=== PATIENT | male | born 1955 | race Caucasian/White ===

== ENCOUNTER → 2016-08-25 | Outpatient (CLI) | payer OTHER ==
[~2016-08-25] MED LIST: ACET1TAB84 PO; CALC500C70 PO; FLV1 PO; FURO-85 PO; HYDR-5688 PO; LBR25 PO; LISI-729 PO; MAGN400T6 PO; PROP20TA67 PO; THM100 PO; VST25HP PO
[2016-08-25 14:42] LABS: BASO % 0.3 %; BASO ABS # 0.03 K/uL (0-0.2); COMPLETE YES; EOS % 0.1 %; IG% 0.3 %; LYMPH % 8.3 %; LYMPH ABS # 0.86 K/uL (1.2-3.4); MEAN CELL VOLUME 99.7 fL (80-100); MEAN CORPUSCULAR HEMOGLOBIN 34.6 pg (25-34); MEAN CORPUSCULAR HGB CONC 34.7 g/dl (32-36); MONO % 11.2 %; NEUT % 79.8 %; PLATELET COUNT 110 K/uL (130-400); RED BLOOD COUNT 3.21 M/uL (4.7-6.1)
[2016-08-25 14:55] LABS: INR 1.5 (0.9-1.1); PROTHROMBIN TIME (PATIENT) 16.8 SECONDS (9.0-12.0)
[2016-08-25 15:15] LABS: AST/SGOT 118 U/L (15-37); BLOOD UREA NITROGEN 39 mg/dl (7-18); BUN/CREATININE RATIO 22.7 (10-20); CALCIUM 8.7 mg/dl (8.5-10.1); CARBON DIOXIDE 24 mmol/L (21-32); CHLORIDE 102 mmol/L (98-107); GLUCOSE 151 mg/dl (70-99); POTASSIUM 4.9 mmol/L (3.5-5.1); SODIUM 139 mmol/L (136-145)
[2016-08-25 15:18] LABS: ALB/GLOB RATIO 0.7 (0.9-2); ALKALINE PHOSPHATASE 114 U/L (45-117); ALT/SGPT 54 U/L (12-78)
== END | disposition home or self-care (01) ==
LOC: C.LAB 12:35
PROVIDERS: ATTEND Family Medicine
DX: K92.2 Gastrointestinal hemorrhage, unspecified (principal)

== ENCOUNTER 2016-08-29 13:07 | Observation (INO) | payer OTHER ==
[~2016-08-29] VITALS: Ht 177.8 cm; Wt 107.0 kg
[~2016-08-29 13:07] MED LIST changes: -ACET1TAB84 PO; -CALC500C70 PO; -FLV1 PO; -HYDR-5688 PO; -LBR25 PO; -MAGN400T6 PO; -PROP20TA67 PO; -THM100 PO
[2016-08-29 14:00] VITALS: BP 129/69; PULSE 69; TEMP 37.7; Ht 177.8 cm; Wt 107.0 kg
[2016-08-29] MEDS ORDERED: ALUMINUM/MAGNESIUM/SIMETH (MAALOX MAX) 30 ML UDC PO PRN (14:30)
[2016-08-29] MEDS ORDERED: POLYETHYLENE (MIRALAX) 17 GM PACK PO PRN (14:30)
[2016-08-29] MEDS ORDERED: ONDANSETRON INJ 2 MG/ML 2 ML VIAL IV PRN (14:30)
[2016-08-29] MEDS ORDERED: hydrOXYzine HCL 25 MG TAB PO PRN (14:30)
[2016-08-29] MEDS ORDERED: ACETAMINOPHEN 325 MG TAB PO PRN (14:30)
[2016-08-29] MEDS ORDERED: MAGNESIUM HYDROXIDE SUSP 30 ML UDC PO PRN (14:30)
[2016-08-29] MEDS ORDERED: IV FLUIDS COMPLETED PRN (14:45)
--- NOTE | 2016-08-29 14:50 | Medical Student: [facility] ---
Med Student History & Physical Date & Time of Service: Aug 29, 2016 at 14:44 Chief Complaint: Alcohol Withdrawl; Esophageal Varices Primary Care Physician: Javad Haskins M.D. History of Present Illness Source: patient 61y/o male with a history heavy alcohol use over the past year had an endoscopy performed today at [facility] and was found to have esophageal varices. He is scheduled to have esophageal banding this upcoming Thursday for the varices and has been admitted for alcoholic detox. The patient's last drink was six days ago. Prior to his last drink, the patient had a one year period where he would drink three shots of whiskey and four beers a day. Six days ago, the day of his last drink, the patient had three episodes of vomiting a brownish-red substance. He had three more episodes of vomiting five days ago and two episodes four days ago. He has had no episodes of vomiting in recent days. However, he has had multiple instances of black stool over the past week. He saw his PCP, Dr. Haskins, this week, and was scheduled for an endoscopy, which was performed today. In terms of current symptoms, the patient states that he has been feeling shaky beginning yesterday. He also has felt some chills and currently feels dizzy. He denies nausea, abdominal pain, diarrhea, constipation, SIMONS, blurred vision, CP, SOB, palpitations, and fevers. Past Medical/Surgical History Medical Problems: (1) Alcoholic cirrhosis of liver 2. HTN 3. Esophageal Varices 4. Lower leg swelling Surgical History 1. Shoulder surgery 2. Tonsillectomy Family History Father: COPD Sibling(s): heart disease Social History Smoking Status: Former Smoker (quit one year ago) Alcohol Use: heavy Marital Status: single Housing status: lives alone Occupational Status: employed Immunizations History of Influenza Vaccine: Yes Influenza Vaccine Date: May 15, 2010 History of Tetanus Vaccine?: Unknown History of Pneumococcal: Yes Pneumococcal Date: May 15, 2010 History of Hepatitis B Vaccine: Unknown Allergies Coded Allergies: No Known Allergies (Unverified , 04/30/16) Medications Furosemide (Lasix), 20 MG PO DAILY Hydroxyzine HCl (Hydroxyzine Pamoate), 1 TAB PO QID PRN for Anxiety Lisinopril (Zestril), 5 MG PO DAILY Review of Systems Constitutional: + chills, No fever, No sweats, No weakness, No weight loss Eyes: No discharge, No redness, No worsening of vision ENT: + sore throat, No hearing loss, No trouble swallowing Respiratory: No cough, No dyspnea on exertion, No shortness of breath, No sputum, No wheezing Cardiovascular: No chest pain, No edema, No palpitations Abdomen: No constipation, No diarrhea, No nausea, No pain, No vomiting Musculoskeletal: No joint pain, No muscle pain, No swelling Neurologic: No memory loss, No numbness/tingling, No paralysis, No weakness Psychiatric: No anxiety, No depression symptoms Integumentary: No itch, No new/changing skin lesions, No rash Physical Exam General Appearance: WD/WN, no apparent distress, + pertinent finding (minimal hand tremor noted) Head: normocephalic, atraumatic Eyes: normal inspection, EOMI ENT: hearing grossly normal, pharynx normal Respiratory/Chest: chest non-tender, no respiratory distress, no accessory muscle use, + crackles (crackles right base) Cardiovascular: regular rate, rhythm, no edema, no gallop, no murmur Abdomen/GI: normal bowel sounds, non tender, + distended Back: normal inspection, no CVA tenderness Extremities/Musculoskelatal: normal inspection, no calf tenderness, no pedal edema Neurologic/Psych: alert, normal mood/affect, oriented x 3 Skin: normal color, warm/dry, no rash Diagnostics Laboratory Results Last 24 Hours Test 08/29/16 15:25 White Blood Count 5.79 K/uL Red Blood Count 2.87 M/uL Hemoglobin 10.1 g/dL Hematocrit 29.3 % Mean Corpuscular Volume 102.1 fL Mean Corpuscular Hemoglobin 35.2 pg Mean Corpuscular Hemoglobin Concent 34.5 g/dl Platelet Count 112 K/uL Mean Platelet Volume 9.8 fL Neutrophils (%) (Auto) 63.8 % Lymphocytes (%) (Auto) 20.2 % Monocytes (%) (Auto) 13.8 % Eosinophils (%) (Auto) 1.0 % Basophils (%) (Auto) 0.9 % Neutrophils # (Auto) 3.69 K/uL Lymphocytes # (Auto) 1.17 K/uL Monocytes # (Auto) 0.80 K/uL Eosinophils # (Auto) 0.06 K/uL Basophils # (Auto) 0.05 K/uL RDW Standard Deviation 52.7 fL RDW Coefficient of Variation 14.1 % Immature Granulocyte % (Auto) 0.3 % Immature Granulocyte # (Auto) 0.02 K/uL Prothrombin Time 16.0 SECONDS Prothromb Time International Ratio 1.5 Results Past 24 Hours Test 08/29/16 14:22 Range/Units Impression Assessment and Plan 61y/o male with a history of alcohol abuse and esophageal varices diagnosed today via endoscopy, admitted for alcohol detox, last drink 6 days ago. The patient currently is having minimal symptoms of alcohol withdrawal at this point , with minimal tremor and some chills. Will continue to monitor the patient overnight, making sure that the patient remains stable. In terms of the esophageal varices, the patient has not had any recent vomiting and his stool has been black but not bright red. Additionally, given that blood can be a laxative, the patient has not been having diarrhea and has not had a bowel movement in the past few days. He currently is not tachycardic. At the moment, the patient is stable but will continue to monitor. Alcohol Withdrawal/Detox- Administer Thiamine 100mg PO QAM, Folic acid 1mg PO QAM. Administer Lorazepam 2mg IV as needed for withdrawal symptoms. Ondansetron as needed for nausea. Liver profile, CBC, BMP, coagulation, and magnesium have been ordered. Monitor electrolytes. Esophageal Varices- Patient currently stable. To lower the risk of ruptured varices, will consider the administration of Propranolol or Isosorbide dinitrate , or potentially both medications. Continue to monitor the patient's vital signs , especially pulse and BP. Monitor blood count. HTN- Continue to administer Lisinopril 5mg PO daily. Lower extremity edema- The patient's creatinine was elevated on lab test in . However, creatinine today was at 1.1. Administer Lasix 20mg PO daily. Level of Care Med/Surg DVT Prophylaxis other (Given patient's history of varices, will not anticoagulate)
[2016-08-29] MEDS ORDERED: THIAMINE HCL 100 MG/ML 2 ML VIAL IV STA (15:04)
[2016-08-29] MEDS ORDERED: FoLIC ACID INJ 1 MG in SYRINGE 9.8 ML IV ONE (15:30)
[2016-08-29] MEDS ORDERED: THIAMINE HCL INJ 100 MG in SYRINGE 9 ML IV ONE (15:30)
[2016-08-29 15:34] LABS: BASO % 0.9 %; BASO ABS # 0.05 K/uL (0-0.2); COMPLETE YES; HEMATOCRIT 29.3 % (42-52); IG% 0.3 %; LYMPH % 20.2 %; LYMPH ABS # 1.17 K/uL (1.2-3.4); MEAN CELL VOLUME 102.1 fL (80-100); MEAN CORPUSCULAR HEMOGLOBIN 35.2 pg (25-34); MEAN CORPUSCULAR HGB CONC 34.5 g/dl (32-36); MEAN PLATELET VOLUME 9.8 fL (7.4-10.4); MONO % 13.8 %; NEUT % 63.8 %; PLATELET COUNT 112 K/uL (130-400); RED BLOOD COUNT 2.87 M/uL (4.7-6.1); WHITE BLOOD COUNT 5.79 K/uL (4.8-10.8)
[2016-08-29 15:44] LABS: INR 1.5 (0.9-1.1)
--- NOTE | 2016-08-29 15:51 | History and Physical ---
History & Physical Date & Time of Service: Aug 29, 2016 at 15:51 Chief Complaint: Alcohol Withdrawl; Esophageal Varices Primary Care Physician: Javad Haskins M.D. Past Medical/Surgical History Medical Problems: (1) Alcohol abuse Status: Chronic (2) Hypertension Status: Chronic Family History Diabetes mellitus Heart disease Lung disease Social History Smoking Status: Former Smoker (quit one year ago) Alcohol Use: heavy Marital Status: single Housing status: lives alone Occupational Status: employed Immunizations History of Influenza Vaccine: Yes Influenza Vaccine Date: May 15, 2010 History of Tetanus Vaccine?: Unknown History of Pneumococcal: Yes Pneumococcal Date: May 15, 2010 History of Hepatitis B Vaccine: Unknown Allergies Coded Allergies: No Known Allergies (Unverified , 04/30/16) Home Medications Scheduled Furosemide (Lasix), 20 MG PO DAILY Lisinopril (Zestril), 5 MG PO DAILY Scheduled PRN Hydroxyzine HCl (Hydroxyzine Pamoate), 1 TAB PO QID PRN for Anxiety Diagnostics Laboratory Results Results Past 24 Hours Test 08/29/16 15:25 Range/Units White Blood Count 5.79 4.8-10.8 K/uL Red Blood Count 2.87 4.7-6.1 M/uL Hemoglobin 10.1 14.0-18.0 g/dL Hematocrit 29.3 42-52 % Mean Corpuscular Volume 102.1 80-100 fL Mean Corpuscular Hemoglobin 35.2 25-34 pg Mean Corpuscular Hemoglobin Concent 34.5 32-36 g/dl Platelet Count 112 130-400 K/uL Mean Platelet Volume 9.8 7.4-10.4 fL Neutrophils (%) (Auto) 63.8 % Lymphocytes (%) (Auto) 20.2 % Monocytes (%) (Auto) 13.8 % Eosinophils (%) (Auto) 1.0 % Basophils (%) (Auto) 0.9 % Neutrophils # (Auto) 3.69 1.4-6.5 K/uL Lymphocytes # (Auto) 1.17 1.2-3.4 K/uL Monocytes # (Auto) 0.80 0.11-0.59 K/uL Eosinophils # (Auto) 0.06 0-0.5 K/uL Basophils # (Auto) 0.05 0-0.2 K/uL RDW Standard Deviation 52.7 36.4-46.3 fL RDW Coefficient of Variation 14.1 11.5-14.5 % Immature Granulocyte % (Auto) 0.3 % Immature Granulocyte # (Auto) 0.02 0.00-0.02 K/uL Prothrombin Time 16.0 9.0-12.0 SECONDS Prothromb Time International Ratio 1.5 0.9-1.1 Impression VTE Prophylaxis VTE Risk Assessment Done? Y/N: Yes Risk Level: Moderate Given or contraindicated: Contraindicated
[2016-08-29 16:07] LABS: ALT/SGPT 173 U/L (12-78); AST/SGOT 344 U/L (15-37); BLOOD UREA NITROGEN 16 mg/dl (7-18); BUN/CREATININE RATIO 14.4 (10-20); CALCIUM 8.2 mg/dl (8.5-10.1); CARBON DIOXIDE 25 mmol/L (21-32); CHLORIDE 103 mmol/L (98-107); GLUCOSE 106 mg/dl (70-99); SODIUM 137 mmol/L (136-145)
[2016-08-29 16:10] LABS: ALB/GLOB RATIO 0.7 (0.9-2); ALKALINE PHOSPHATASE 115 U/L (45-117)
[2016-08-29] MEDS ORDERED: INFLUENZA VIRUS QUAD VACCINE 0.5 ML SYR IM. ONE (16:30)
[2016-08-29] MEDS ORDERED: INFLUENZA ADMINISTRATION CHARGE ONE (16:30)
[2016-08-29] MEDS ORDERED: PHYTONADIONE 5 MG TAB PO STA (17:01)
--- NOTE | 2016-08-29 17:01 | History and Physical ---
History & Physical Date & Time of Service: Aug 29, 2016 at 17:00 Chief Complaint: Alcohol Withdrawl; Esophageal Varices Primary Care Physician: Javad Haskins M.D. Past Medical/Surgical History Medical Problems: (1) Alcohol abuse Status: Chronic (2) Hypertension Status: Chronic Family History Diabetes mellitus Heart disease Lung disease Social History Smoking Status: Former Smoker (quit one year ago) Alcohol Use: heavy Marital Status: single Housing status: lives alone Occupational Status: employed Immunizations History of Influenza Vaccine: Yes Influenza Vaccine Date: May 15, 2010 History of Tetanus Vaccine?: Unknown History of Pneumococcal: Yes Pneumococcal Date: May 15, 2010 History of Hepatitis B Vaccine: Unknown Allergies Coded Allergies: No Known Allergies (Unverified , 04/30/16) Home Medications Scheduled Furosemide (Lasix), 20 MG PO DAILY Lisinopril (Zestril), 5 MG PO DAILY Scheduled PRN Hydroxyzine HCl (Hydroxyzine Pamoate), 1 TAB PO QID PRN for Anxiety Physical Exam Vital Signs Date Time Temp Pulse Resp B/P Pulse Ox O2 Delivery O2 Flow Rate FiO2 08/29/16 14:00 37.7 69 18 129/69 Room Air Diagnostics Laboratory Results Results Past 24 Hours Test 08/29/16 15:25 Range/Units White Blood Count 5.79 4.8-10.8 K/uL Red Blood Count 2.87 4.7-6.1 M/uL Hemoglobin 10.1 14.0-18.0 g/dL Hematocrit 29.3 42-52 % Mean Corpuscular Volume 102.1 80-100 fL Mean Corpuscular Hemoglobin 35.2 25-34 pg Mean Corpuscular Hemoglobin Concent 34.5 32-36 g/dl Platelet Count 112 130-400 K/uL Mean Platelet Volume 9.8 7.4-10.4 fL Neutrophils (%) (Auto) 63.8 % Lymphocytes (%) (Auto) 20.2 % Monocytes (%) (Auto) 13.8 % Eosinophils (%) (Auto) 1.0 % Basophils (%) (Auto) 0.9 % Neutrophils # (Auto) 3.69 1.4-6.5 K/uL Lymphocytes # (Auto) 1.17 1.2-3.4 K/uL Monocytes # (Auto) 0.80 0.11-0.59 K/uL Eosinophils # (Auto) 0.06 0-0.5 K/uL Basophils # (Auto) 0.05 0-0.2 K/uL RDW Standard Deviation 52.7 36.4-46.3 fL RDW Coefficient of Variation 14.1 11.5-14.5 % Immature Granulocyte % (Auto) 0.3 % Immature Granulocyte # (Auto) 0.02 0.00-0.02 K/uL Prothrombin Time 16.0 9.0-12.0 SECONDS Prothromb Time International Ratio 1.5 0.9-1.1 Sodium Level 137 136-145 mmol/L Potassium Level 4.0 3.5-5.1 mmol/L Chloride Level 103 98-107 mmol/L Carbon Dioxide Level 25 21-32 mmol/L Anion Gap 9.0 3-11 mmol/L Blood Urea Nitrogen 16 7-18 mg/dl Creatinine 1.10 0.60-1.40 mg/dl Estimated GFR () 83.5 Estimated GFR (Non- 72.1 BUN/Creatinine Ratio 14.4 10-20 Random Glucose 106 70-99 mg/dl Calcium Level 8.2 8.5-10.1 mg/dl Magnesium Level 2.0 1.8-2.4 mg/dl Total Bilirubin 2.2 0.2-1 mg/dl Aspartate Amino Transf (AST/SGOT) 344 15-37 U/L Alanine Aminotransferase (ALT/SGPT) 173 12-78 U/L Alkaline Phosphatase 115 45-117 U/L Total Protein 6.6 6.4-8.2 gm/dl Albumin 2.8 3.4-5.0 gm/dl Globulin 3.8 2.5-4.0 gm/dl Albumin/Globulin Ratio 0.7 0.9-2 Impression Assessment and Plan #[id number] Advanced Directives Existing Living Will: No Existing Power of Photo Manager: No VTE Prophylaxis VTE Risk Assessment Done? Y/N: Yes Risk Level: Moderate Given or contraindicated: Contraindicated
--- NOTE | 2016-08-29 17:37 | HISTORY & PHYSICAL EXAMINATION ---
DATE OF ADMISSION: 08/29/2016 ADMISSION HISTORY AND PHYSICAL CHIEF COMPLAINT: Alcohol withdrawal. HISTORY OF PRESENT ILLNESS: The patient is a very pleasant 61-year-old male who last quit drinking on Thursday. He has had heavy alcohol use for quite a while, especially over the last year, even more than his baseline and he had some bloody vomitus earlier this week, his last he relates to me being Thursday as well as some melena in his stools but no diarrhea and actually right now he is kind of constipated. No bloody stools. No significant abdominal pain. He had an endoscopy performed today and was found to have esophageal varices. He is to have banding this Thursday, but was showing some signs of withdrawal, so we were asked to admit him to manage his alcohol withdrawal. Again, he notes his last drink was about 5 going on 6 days ago. He is somewhat shaky and maybe a little bit of diminished appetite but no other complaints, no hematemesis, no hematochezia. He does have melena, but no diarrhea, not frequent stools; he is actually constipated. REVIEW OF SYSTEMS: Otherwise negative, except for as above. PAST MEDICAL HISTORY: Includes cirrhosis from alcohol; esophageal varices; lower extremity, uncertain etiology; hypertension. MEDICATIONS: Lasix 20 mg daily, Atarax q.i.d. p.r.n. anxiety and lisinopril 5 mg daily. SOCIAL HISTORY: Quit smoking about a year ago. He does drink heavily, probably at least 6-8 drinks a day, it sounds like based on his history. He is single and he lives alone. ALLERGIES: No known drug allergies. FAMILY HISTORY: His dad had COPD, had a sibling with heart disease. PHYSICAL EXAMINATION: VITAL SIGNS: Temperature 37.7, pulse 69, respiratory rate 18, blood pressure 129/69. GENERAL: He is awake, alert, oriented x3, pleasant, in no acute distress. HEENT: Normocephalic, atraumatic. Mucous membranes are moist. CARDIOVASCULAR: Regular without rubs, murmurs, or gallops. He is not tachycardic. LUNGS: Clear to auscultation bilaterally. No rales, rhonchi, or wheezes with good effort. ABDOMEN: Soft, moderately distended, no fluid wave. No guarding, no rebound, no rigidity. I cannot really assess organomegaly due to the distention. He has no tenderness. EXTREMITIES: Show no cyanosis, clubbing or edema. No calf tenderness. SKIN: Shows no rashes, no pallor or icterus. He maybe has the smallest amount of scleral icterus, but definitely nothing in the skin. NEUROLOGIC: Shows cranial nerves II-XII to be grossly intact. Gross motor and sensory are intact. He is mildly tremulous. MENTAL STATE: Shows good recent and remote recall. Normal mood and affect. Good judgment and insight. MUSCULOSKELETAL: Yields no gross lesions. LABORATORIES AND DIAGNOSTICS: CBC shows a white count of 5.79, hemoglobin 10.1 with an MCV of 102.1, platelets 112. Complete metabolic panel with sodium 137, potassium 4, chloride 103, CO2 25, BUN 16, creatinine 1.1. Calcium 8.2, glucose 106, mag 2, total bilirubin 2.2 with an AST of 344, ALT 173, alkaline phosphatase 115, total bili 6.6 with an albumin of 2.8. PT of 16 with an INR of 1.5. Hep C screen is pending. ASSESSMENT AND PLAN: 1. Alcohol withdrawal. Fortunately, his withdrawal appears fairly mild. He is working on day #5 going into day #6 since his last drink. He does not know what his previous alcohol withdrawal would look like because he has really never quit. He does drink fairly heavily for a long period of time, certainly he would be fairly high risk and it is very reasonable to follow him overnight. We will utilize the alcohol withdrawal protocol for benzodiazepines, based on his withdrawal symptoms I fortunately expect this to be fairly mild. 2. Alcohol abuse. His fallout from this appears to be cirrhosis, although fortunately he actually shows a degree of what appears to be an alcoholic hepatitis, so at least he is able to mount a hepatocellular response, which is fairly reassuring in an odd way. Will add thiamine and folate. 3. Cirrhosis. He does have an elevated bilirubin but it is actually lower than it was earlier in the week. He has an elevated INR, but we will give him vitamin K to see if it corrects and again as above noted, he is showing an alcoholic hepatitis, which at least in an odd way is reassuring for not necessarily being at end-stage liver disease. 4. Esophageal varices. He is not showing any signs or symptoms of bleeding. His hemoglobin is stable from what it was earlier this week. We will continue to follow, likely given his blood pressure and heart rate will discontinue his lisinopril and Lasix in favor of long-acting nitrates and if his heart rate allows certainly would also like to add a nonselective beta juan jose, but I am not sure if this will be workable given his heart rates in the 60s and will check with GI to see if they felt he was high enough risk to need to keep in the hospital through Thursday for banding or if mostly we were going to simply manage the withdrawal and then he can have a banding done as an outpatient. 5. Thrombocytopenia related to alcohol abuse. 6. Anemia related to upper gastrointestinal bleeding from before. 7. Macrocytosis. We will check B12. 8. Peripheral edema. He does not appear to have ascites. He does not appear to have congestive heart failure. Will discontinue his Lasix. Of note, his creatinine was 1.7 earlier in the week, it is now down to 1.1 and I suspect the acute renal failure was related to blood loss and/or diuretics. 9. Hypocalcemia. Check a vitamin D. 10. Hypertension as above. 11. Deep venous thrombosis prophylaxis. Pharmacologic prophylaxis is obviously contraindicated with his recently bleeding varices. Mechanical prophylaxis would be of dubious benefit and possible harm in terms of skin breakdown and falls, so we will encourage ambulation as possible. ANTONIO
[2016-08-30 07:35] VITALS: BP 132/72; PULSE 76; TEMP 37.1; O2SAT 96
[2016-08-30 07:40] VITALS: O2SAT 96
[2016-08-30] MEDS ORDERED: LORAZEPAM INJ 0.5 MG in SYRINGE 0.75 ML IV PRN (07:45)
[2016-08-30] MEDS ORDERED: CHLORDIAZEPOXIDE 25 MG CAP PO SCH (08:00)
[2016-08-30 08:25] LABS: INR 1.4 (0.9-1.1); PROTHROMBIN TIME (PATIENT) 15.3 SECONDS (9.0-12.0)
[2016-08-30] MEDS ORDERED: FLV1 PO (08:48)
[2016-08-30] MEDS ORDERED: THM100 PO (08:48)
[2016-08-30] MEDS ORDERED: LBR25 PO (08:48)
--- NOTE | 2016-08-30 08:50 | Discharge Instructions ---
Discharge Instructions Admission Reason for Admission: Alcohol Withdrawl; Esophageal Varices Discharge Discharge Diagnosis / Problem: alcohol withdrawal Discharge Goals Goal(s): Increase independence, Improve disease control, Diagnostic testing, Therapeutic intervention Activity Recommendations Activity Limitations: per Instructions/Follow-up section . Instructions / Follow-Up Instructions / Follow-Up follow up Gastroenterology on thursday for variceal banding procedure Current Hospital Diet Patient's current hospital diet: Regular Diet Discharge Diet Recommended Diet: Regular Diet Pending Studies Studies pending at discharge: no Laboratory Results Last 24 Hours Test 08/29/16 15:25 08/30/16 08:00 White Blood Count 5.79 K/uL Red Blood Count 2.87 M/uL Hemoglobin 10.1 g/dL Hematocrit 29.3 % Mean Corpuscular Volume 102.1 fL Mean Corpuscular Hemoglobin 35.2 pg Mean Corpuscular Hemoglobin Concent 34.5 g/dl Platelet Count 112 K/uL Mean Platelet Volume 9.8 fL Neutrophils (%) (Auto) 63.8 % Lymphocytes (%) (Auto) 20.2 % Monocytes (%) (Auto) 13.8 % Eosinophils (%) (Auto) 1.0 % Basophils (%) (Auto) 0.9 % Neutrophils # (Auto) 3.69 K/uL Lymphocytes # (Auto) 1.17 K/uL Monocytes # (Auto) 0.80 K/uL Eosinophils # (Auto) 0.06 K/uL Basophils # (Auto) 0.05 K/uL RDW Standard Deviation 52.7 fL RDW Coefficient of Variation 14.1 % Immature Granulocyte % (Auto) 0.3 % Immature Granulocyte # (Auto) 0.02 K/uL Prothrombin Time 16.0 SECONDS 15.3 SECONDS Prothromb Time International Ratio 1.5 1.4 Sodium Level 137 mmol/L Potassium Level 4.0 mmol/L Chloride Level 103 mmol/L Carbon Dioxide Level 25 mmol/L Anion Gap 9.0 mmol/L Blood Urea Nitrogen 16 mg/dl Creatinine 1.10 mg/dl Estimated GFR () 83.5 Estimated GFR (Non- 72.1 BUN/Creatinine Ratio 14.4 Random Glucose 106 mg/dl Calcium Level 8.2 mg/dl Magnesium Level 2.0 mg/dl Total Bilirubin 2.2 mg/dl Aspartate Amino Transf (AST/SGOT) 344 U/L Alanine Aminotransferase (ALT/SGPT) 173 U/L Alkaline Phosphatase 115 U/L Total Protein 6.6 gm/dl Albumin 2.8 gm/dl Globulin 3.8 gm/dl Albumin/Globulin Ratio 0.7 Hepatitis C Antibody Screen NEG Medical Emergencies . Who to Call and When: Medical Emergencies: If at any time you feel your situation is an emergency, please call 911 immediately. . Non-Emergent Contact Non-Emergency issues call your: Primary Care Provider Call Non-Emergent contact if: you have any medication questions . Past History Medical & Surgical History: (1) Alcohol withdrawal . "Provider Documentation" section prepared by Benjie Michel. VTE Core Measure Inpt VTE Proph given/why not?: Contraindicated
[2016-08-30] MEDS ORDERED: THIAMINE HCL 100 MG TAB PO SCH (09:00)
[2016-08-30] MEDS ORDERED: LISINOPRIL 5 MG TAB PO SCH (09:00)
[2016-08-30] MEDS ORDERED: FUROSEMIDE 20 MG TAB PO SCH (09:00)
--- NOTE | 2016-08-30 09:05 | Discharge Summary ---
Discharge Summary Date of Service Aug 30, 2016. Discharge Summary Admission Date: Aug 29, 2016 at 13:30 Discharge Date: Aug 30, 2016 Discharge Disposition: Home Principal Diagnosis: alcohol withdrawal Immunizations: Have You Had Influenza Vaccine: Yes Influenza Vaccine Date: May 15, 2010 History of Tetanus Vaccine?: Unknown History of Pneumococcal: Yes Pneumococcal Date: May 15, 2010 History of Hepatitis B Vaccine: Unknown Medication Reconciliation New Medications: Chlordiazepoxide (Chlordiazepoxide HCl) 25 Mg Cap 25 MG PO Q8H PRN for Anxiety/Agitation MDD 75, #20 CAP Folic Acid (Folic Acid) 1 Mg Tab 1 MG PO QAM, #90 TAB Thiamine HCl (Vitamin B-1) 100 Mg Tab 100 MG PO QAM, #90 TAB Continued Medications: Furosemide (Lasix) 20 Mg Tab 20 MG PO DAILY, TAB Hydroxyzine HCl (Hydroxyzine Pamoate) 25 Mg Tab 1 TAB PO QID PRN for Anxiety Lisinopril (Zestril) 5 Mg Tab 5 MG PO DAILY, TAB Referrals At Discharge Follow up Referrals: [facility] Referral - Within 1 Week with Randy Live M.D. Physician Referral - Within 2 Weeks with Javad Haskins M.D. Discharge Exam Review of Systems: Constitutional: No chills ENT: No unusual epistaxis Respiratory: No sputum Cardiovascular: No PND Musculoskeletal: No joint pain Genitourinary - Male: No hematuria Hematologic / Lymphatic: No abnormal bleeding/bruising Physical Exam: General Appearance: WD/WN, no apparent distress Eyes: normal inspection, EOMI ENT: hearing grossly normal, pharynx normal Neck: supple Respiratory/Chest: chest non-tender, no accessory muscle use Cardiovascular: no gallop, no murmur Abdomen / GI: soft, no pulsatile mass Extremities: normal inspection, normal capillary refill Neurologic/Psychiatric: alert, normal reflexes Skin: warm/dry, no rash Hospital Course A 61 yo male comes with 1. Alcohol withdrawal. Fortunately, his withdrawal appears fairly mild. his symptoms improved, start librium prn, folic acid and thiamine supplements 2. Alcohol abuse. His fallout from this appears to be cirrhosis, although fortunately he actually shows a degree of what appears to be an alcoholic hepatitis, so at least he is able to mount a hepatocellular response 3. Cirrhosis. He does have an elevated bilirubin but it is actually lower than it was earlier in the week. He has an elevated INR, due to alcoholic hepatitis received vitamin K 4. Esophageal varices. He is not showing any signs or symptoms of bleeding. His hemoglobin is stable from what it was earlier this week. will follow GI on thursday for esophageal varices banding 5. Thrombocytopenia related to alcohol abuse. 6. Anemia related to upper gastrointestinal bleeding from before. 7. Macrocytosis. We will check B12. 8. Peripheral edema. He does not appear to have ascites. 9. Hypocalcemia. Check a vitamin D. 10. Hypertension as above. f/u GI in thursday for procedure, follow up PCP 2 weeks take librium prn Total Time Spent: Greater than 30 minutes This includes examination of the patient, discharge planning, medication reconciliation, and communication with other providers. Discharge Instructions Please refer to the electronic Patient Visit Report (Discharge Instructions) for additional information. Additional Copies To Randy Live M.D.; Javad Haskins M.D.
[2016-08-30 09:57] VITALS: BP 132/72; PULSE 76; TEMP 37.1; O2SAT 96
[2016-09-01] MEDS ORDERED: CALC500C70 PO (12:47)
[2016-09-01] MEDS ORDERED: MAGN400T6 PO (12:47)
== END 2016-08-30 11:31 | disposition home or self-care (01) ==
LOC: INTOOBSV 13:30 → UNDOADMOB 13:30 → C.MS2W 13:30 → UNDODISOB 08-30 11:31
PROVIDERS: ADMIT Hospitalist; ATTEND Hospitalist
DX: F10.239 Alcohol dependence with withdrawal, unspecified (principal); E83.51 Hypocalcemia; K70.10 Alcoholic hepatitis without ascites; K70.30 Alcoholic cirrhosis of liver without ascites; D69.6 Thrombocytopenia, unspecified; I85.00 Esophageal varices without bleeding; D75.89 Other specified diseases of blood and blood-forming organs; I10 Essential (primary) hypertension; Z87.891 Personal history of nicotine dependence; Z82.5 Family history of asthma and other chronic lower respiratory diseases; Z83.3 Family history of diabetes mellitus; Z82.49 Family history of ischemic heart disease and other diseases of the circulatory system

== ENCOUNTER → 2016-09-01 | Day surgery (SDC) | payer OTHER ==
[~2016-09-01] VITALS: Ht 177.8 cm; Wt 106.0 kg
[~2016-09-01] MED LIST changes: +ACET1TAB84 PO; +CALC500C70 PO; +FLV1 PO; +HYDR-5688 PO; +LBR25 PO; +MAGN400T6 PO; +PROP20TA67 PO; +THM100 PO
[2016-09-01 12:52] VITALS: BP 103/57; PULSE 69; TEMP 37; O2SAT 98
[2016-09-01 12:55] VITALS: Ht 177.8 cm; Wt 106.0 kg
== END | disposition home or self-care (01) ==
LOC: C.GI 12:14
PROVIDERS: ATTEND Internal Medicine Gastroenterology
DX: I85.00 Esophageal varices without bleeding (principal); Z53.8 Procedure and treatment not carried out for other reasons

== ENCOUNTER → 2016-09-02 | Day surgery (SDC) | payer OTHER ==
[~2016-09-02] VITALS: Ht 177.8 cm; Wt 107.0 kg
[~2016-09-02] MED LIST changes: +LIDOCAINE HCL 2% 2 ML VIAL (20MG/ML) ONE; +MIDAZOLAM HCL 1 MG/ML 2ML VIAL ONE; +PROPOFOL IV EMULSION 10 MG/ML 20 ML VIAL IV ONE; +SODIUM CHLORIDE 0.9% 500ML 500 ML IV ONE
[2016-09-02 13:35] VITALS: Ht 177.8 cm; Wt 107.0 kg
--- NOTE | 2016-09-02 14:09 | Endo History and Physical ---
History & Physical Date of Service: Sep 02, 2016. Chief Complaint: varices Referring Physician: Dr Live Past Surgical History Hx Cardiac Surgery: No Hx Internal Defibrillator: No Hx Pacemaker: No Hx Abdominal Surgery: No Hx Post-Op Nausea and Vomiting: No Hx Cancer Surgery: No Hx Thoracic Surgery: No Hx Orthopedic: Yes (Shoulder repair with 3 pins placed, bilat miniscus repair) Hx Urinary Tract Surgery: No Social History Smoking Status: Former Smoker Hx Substance Use: Yes (just started taking anxiety meds) Hx Alcohol Use: No Allergies Coded Allergies: No Known Allergies (Verified , 09/01/16) Current Medications Reported Home Medications Medications Dose Route/Sig Max Daily Dose Days Date Category Os-Adair 500 Plus D (Calcium/Vitamin D) Tab 1 Tab PO DAILY 09/01/16 Reported Mag-Ox (Magnesium Oxide) 400 Mg Tab 400 Mg PO 09/01/16 Reported Vitamin B-1 (Thiamine HCl) 100 Mg Tab 100 Mg PO QAM 08/30/16 Rx Folic Acid 1 Mg Tab 1 Mg PO QAM 08/30/16 Rx Chlordiazepoxide HCl (Chlordiazepoxide) 25 Mg Cap 25 Mg PO Q8H PRN MDD 75 08/30/16 Rx Lasix (Furosemide) 20 Mg Tab 20 Mg PO DAILY 04/30/16 Reported Zestril (Lisinopril) 5 Mg Tab 5 Mg PO DAILY 04/30/16 Reported Hydroxyzine Pamoate (Hydroxyzine HCl) 25 Mg Tab 1 Tab PO QID PRN 04/30/16 Reported Physical Exam AAO x3 Nl s1s2 lungs CTA Abd soft NT/ND + BS - CCE Assessment and Plan EGD for banding varices
--- NOTE | 2016-09-02 14:45 | GI REPORT ---
Procedure Date: 09/02/2016 2:05 PM Procedure: Upper GI endoscopy Indications: 1st degree variceal eradication (no prior bleeding) Medicines: Propofol per Anesthesia Complications: No immediate complications. Estimated blood loss: None. Estimated Blood Loss: Estimated blood loss: none. Procedure: Pre-Anesthesia Assessment: - Prior to the procedure, a History and Physical was performed, and patient medications and allergies were reviewed. The patient's tolerance of previous anesthesia was also reviewed. The risks and benefits of the procedure and the sedation options and risks were discussed with the patient. All questions were answered, and informed consent was obtained. Prior Anticoagulants: The patient has taken no previous anticoagulant or antiplatelet agents. ASA Grade Assessment: III - A patient with severe systemic disease. After reviewing the risks and benefits, the patient was deemed in satisfactory condition to undergo the procedure. After obtaining informed consent, the endoscope was passed under direct vision. Throughout the procedure, the patient's blood pressure, pulse, and oxygen saturations were monitored continuously. The scope was introduced through the mouth, and advanced to the second part of duodenum. The upper GI endoscopy was accomplished without difficulty. The patient tolerated the procedure well. Findings: Grade III varices were found in the middle third of the esophagus, in the lower third of the esophagus and at the gastroesophageal junction. They were 4 mm in largest diameter. Six bands were successfully placed with incomplete eradication of varices. There was no bleeding during, and at the end, of the procedure. Mild portal hypertensive gastropathy was found in the gastric fundus and in the gastric body. The duodenal bulb, first part of the duodenum and 2nd part of the duodenum were normal. The cardia and gastric fundus were normal on retroflexion. Retained gastric contents are not identified on this exam. Impression: - Grade III esophageal varices. Incompletely eradicated. Banded. - Portal hypertensive gastropathy. - Normal duodenal bulb, first part of the duodenum and 2nd part of the duodenum. - No specimens collected. Recommendation: - Discharge patient to home (ambulatory). - Soft diet for 2 days. - Repeat the upper endoscopy in 3 weeks per protocol. - Return to referring physician as previously scheduled. MD Irwin Morgan MD 09/02/2016 2:45:59 PM This report has been signed electronically. Note Initiated On: 09/02/2016 2:05 PM I attest to the content of the Intraoperative Record and orders documented therein, exceptions below
--- NOTE | 2016-09-02 14:48 | Discharge Instructions ---
Endoscopy Patient Instructions Date / Procedure(s) Performed Sep 02, 2016. EGD Allergy Information Coded Allergies: No Known Allergies (Verified , 09/01/16) Discharge Date / Findings Sep 02, 2016. varices- banded Medication Instructions Restart Stopped Medication(s): Reported Home Medications Medications Dose Route/Sig Max Daily Dose Days Date Category Os-Adair 500 Plus D (Calcium/Vitamin D) Tab 1 Tab PO DAILY 09/01/16 Reported Mag-Ox (Magnesium Oxide) 400 Mg Tab 400 Mg PO 09/01/16 Reported Vitamin B-1 (Thiamine HCl) 100 Mg Tab 100 Mg PO QAM 08/30/16 Rx Folic Acid 1 Mg Tab 1 Mg PO QAM 08/30/16 Rx Chlordiazepoxide HCl (Chlordiazepoxide) 25 Mg Cap 25 Mg PO Q8H PRN MDD 75 08/30/16 Rx Lasix (Furosemide) 20 Mg Tab 20 Mg PO DAILY 04/30/16 Reported Zestril (Lisinopril) 5 Mg Tab 5 Mg PO DAILY 04/30/16 Reported Hydroxyzine Pamoate (Hydroxyzine HCl) 25 Mg Tab 1 Tab PO QID PRN 04/30/16 Reported Provider Instructions Activity Restrictions - No exercising or heavy lifting for 24 hours. - Do not drink alcohol the day of the procedure. - Do not drive a car or operate machinery until the day after the procedure. - Do not make any important decisions or sign important papers in 24 hours after the procedure. Following Day: - Return to full activity which may include returning to work/school. Diet Start your diet with liquids and light foods (jello, soup, juice, toast). Then eat your usual diet if not nauseated. Treatment For Common After Affects For mild abdominal pain, bloating, or excessive gas: - Rest - Eat lightly - Lie on right side Reported Home Medications Medications Dose Route/Sig Max Daily Dose Days Date Category Os-Adair 500 Plus D (Calcium/Vitamin D) Tab 1 Tab PO DAILY 09/01/16 Reported Mag-Ox (Magnesium Oxide) 400 Mg Tab 400 Mg PO 09/01/16 Reported Vitamin B-1 (Thiamine HCl) 100 Mg Tab 100 Mg PO QAM 08/30/16 Rx Folic Acid 1 Mg Tab 1 Mg PO QAM 08/30/16 Rx Chlordiazepoxide HCl (Chlordiazepoxide) 25 Mg Cap 25 Mg PO Q8H PRN MDD 75 08/30/16 Rx Lasix (Furosemide) 20 Mg Tab 20 Mg PO DAILY 04/30/16 Reported Zestril (Lisinopril) 5 Mg Tab 5 Mg PO DAILY 04/30/16 Reported Hydroxyzine Pamoate (Hydroxyzine HCl) 25 Mg Tab 1 Tab PO QID PRN 04/30/16 Reported Follow-Up Information Follow-up with Dr. Haskins as scheduled Anesthesia Information What You Should Know You have had a procedure that required some medicine to reduce anxiety and discomfort. This treatment is called moderate sedation. After receiving the treatment, you may be sleepy, but you will be able to breathe on your own. The effects of the treatment may last for several hours. Follow these instructions along with Activity/Diet recommendations noted above: * Do NOT do anything where dizziness or clumsiness would be dangerous. * Rest quietly at home today, then you can be up and about tomorrow. * Have a responsible person stay with you the rest of today. * You may have had an I.V. today. If so, you may take the dressing off later today. Recommendations Call your doctor if: * Trouble breathing * Continuous vomiting for more than 24 hours * Temperature above 101 degrees * Severe abdominal pain or bloating * Pain not relieved by pain medicine ordered * There is increased drainage or redness from any incision * A large amount of rectal bleeding greater than 2-3 tablespoons. (If you had a polyp/s removed or have hemorrhoids, a small amount of blood - from the rectum is to be expected.) * You have any unanswered questions or concerns. IN THE EVENT OF A SERIOUS EMERGENCY, GO TO THE NEAREST EMERGENCY ROOM Your discharge instructions were prepared by provider Irwin Wong. Patient Instructions Signature Page Rajeev Lovell Patient (or Guardian) Signature/Date: I have read and understand the instructions given to me by my caregivers. Caregiver/RN/Doctor Signature/Date: The above-named patient and/or guardian has received patient instructions on this date. + Original Patient Signature Page (only) stays with chart. Please make copy for patient.
--- NOTE | 2016-09-02 15:32 | Anesthesiology Progress Note ---
Anesthesia Post Op Note Date & Time Sep 02, 2016 at 15:31 Vital Signs Pain Intensity: 6 Vital Signs Past 12 Hours Date Time Temp Pulse Resp B/P Pulse Ox O2 Delivery O2 Flow Rate FiO2 09/02/16 15:13 68 16 117/65 96 Room Air 09/02/16 15:04 80 16 106/73 96 Room Air 09/02/16 14:54 79 16 114/69 100 Room Air 09/02/16 14:44 74 16 119/61 95 Room Air 09/02/16 13:45 36.6 68 18 141/64 98 Room Air Notes Mental Status: alert / awake / arousable, participated in evaluation Pt Amnestic to Procedure: Yes Nausea / Vomiting: adequately controlled Pain: adequately controlled Airway Patency, RR, SpO2: stable & adequate BP & HR: stable & adequate Hydration State: stable & adequate Anesthetic Complications: no major complications apparent
[2016-09-02 15:35] VITALS: BP 109/83; PULSE 71; O2SAT 97
== END | disposition home or self-care (01) ==
LOC: C.GI 12:50
PROVIDERS: ATTEND Internal Medicine Gastroenterology
DX: I85.00 Esophageal varices without bleeding (principal); K31.89 Other diseases of stomach and duodenum; Z98.890 Other specified postprocedural states; Z87.891 Personal history of nicotine dependence

== ENCOUNTER 2016-10-30 09:53 | Emergency (ER) | payer SELFPAY ==
[~2016-10-30] VITALS: Ht 177.8 cm; Wt 103.5 kg
[~2016-10-30 09:53] MED LIST changes: -ACET1TAB84 PO; -HYDR-5688 PO; -LIDOCAINE HCL 2% 2 ML VIAL (20MG/ML) ONE; -MIDAZOLAM HCL 1 MG/ML 2ML VIAL ONE; -PROP20TA67 PO; -PROPOFOL IV EMULSION 10 MG/ML 20 ML VIAL IV ONE; -SODIUM CHLORIDE 0.9% 500ML 500 ML IV ONE
[2016-10-30 09:57] VITALS: TEMP 36.7; Ht 177.8 cm; Wt 103.5 kg
--- NOTE | 2016-10-30 11:30 | DIAGNOSTIC IMAGING REPORT ---
LEFT RIBS UNILATERAL WITH PA CHEST CLINICAL HISTORY: Left rib pain following fall. COMPARISON STUDY: Chest CT April 30, 2016. FINDINGS: There is no pneumothorax or pleural effusion. Mild cardiomegaly is unchanged. There is no evidence of pulmonary edema. There are old fractures of the left third, fourth and fifth ribs as well as an old fracture the left scapula. There are acute minimally displaced fractures of the anterior left seventh and eighth ribs with a nondisplaced acute fracture of the anterior left ninth rib. S-shaped scoliosis of the thoracolumbar spine is noted. IMPRESSION: Acute minimally displaced fractures of the antral left seventh and eighth ribs and an acute nondisplaced fracture of the anterior left ninth rib. No pneumothorax. Electronically signed by: Daniel Aguilar M.D. 10/30/2016 11:28 AM Dictated Date/Time: 10/30/2016 11:25 AM
[2016-10-30] MEDS ORDERED: HYDR-5688 PO (11:37)
[2016-10-30 11:54] VITALS: BP 116/63; PULSE 65; O2SAT 95
[2016-10-30] MEDS ORDERED: ACET1TAB84 PO (11:54)
--- NOTE | 2016-10-31 06:19 | EMERGENCY ROOM VISIT NOTE ---
ED Visit Note First contact with patient: 10:09 Chief Complaint: Left sided rib pain. History of Present Illness: Mr. Lovell is a 61-year-old white male who ambulates into the ED complaining of left anterior lateral rib pain. Patient reports on September 28, proximal to 30 days ago, he was walking across a gas station and tripped and fell onto the left side of his chest. He reports during the fall his left arm was between the pavement and his ribs. Additionally he reports at the time of the fall he did not strike his head or have a loss of consciousness and since the fall he denies all signs of head injury. Patient reports after the fall he immediately got up and was feeling okay. But shortly after the fall when he arrived home he started having left sided rib pain. He places his discomfort over the lower left ribs anteriorly and laterally. Since that time he reports the pain has been constant and feels the pain has been worsening. He describes his pain as a sharp sensation. At rest he rates his discomfort 8/10. His pain worsens with deep inspiration, lying on his chest wall on the left and palpation. He has not identified any alleviating factors related to the pain. He reports she's been taking acetaminophen but has had no relief of his discomfort. Associated with his pain he reports he's been having a mild nonproductive cough. He denies fevers, chills, sweats, skin eruptions, skin color changes, other upper respiratory tract symptoms, hemoptysis, shortness of breath, difficulty breathing, wheezing, chest pain, palpitations, back pain, abdominal pain, nausea /vomiting. Review of Systems: As noted above in history of present illness. All body systems were reviewed and found to be negative as noted above. Past Medical History: Chronic lower back pain, esophageal disease, alcohol abuse. Current Medications: Folic acid, thiamine, hydroxyzine pamoate, lisinopril, magnesium, calcium/vitamin D. Allergies to Medications: Patient denies. Social History: Patient is not currently employed; he feels safe in his home environment; he denies tobacco use; he admits to alcohol use. Physical Examination: Vital Signs: Date Time Temp Pulse Resp B/P Pulse Ox O2 Delivery O2 Flow Rate FiO2 10/30/16 11:54 65 18 116/63 95 Room Air 10/30/16 09:57 36.7 68 16 114/67 97 Room Air GENERAL: 61-year-old male in mild to moderate distress due to pain, nontoxic- appearing, afebrile and hemodynamically stable. NEUROLOGICAL: Awake, alert and oriented to person, place and time. Answering questions appropriately and following commands. Normal gait. Good hand eye coordination. No focal motor sensory deficits. SKIN: Warm, dry and pink. No soft tissue eruptions or trauma noted. HEENT: Atraumatic and normocephalic. PERRLA. Sclera white and conjunctiva pink. Airway patent. Speech normal. Trachea midline. No jugular venous distention. BACK: No tenderness over the bony cervical and thoracic spine. No CVA tenderness. THORAX: Lungs sounds are clear to auscultation and equal bilaterally with symmetrical chest wall. No wheezing, rales or rhonchi. Moderate tenderness over anterior ribs 7 through 10 and over the anterior axillary line in the same area. Do not appreciate any bony deformity, bony crepitus or subcutaneous air. HEART: Regular rate and rhythm. No gallops, rubs or murmurs are appreciated. ABDOMEN: Flat, soft and nontender. Positive bowel sounds in all quadrants. No guarding, rigidity or organomegaly. EXTREMITIES: Moves all extremities well on command and with purpose. All distal neurovascular statuses are intact and equal bilaterally. ED Course: Patient is assessed as noted above. PA Chest and Left Rib X-Rays: Were reviewed by myself and read by the radiologist showing no acute infiltrates, effusions or pneumothorax. Mild cardiomegaly that is unchanged from chest CT in April 2016. No evidence of pulmonary edema. Old fractures on the left third, fourth and fifth ribs and the left scapula. Acute minimally displaced fractures of the anterior left seventh and eighth ribs and acute nondisplaced fracture of the anterior left ninth rib. No pneumothorax. Patient was offered pain medications and refused. Patient was educated about tonight's findings and instructed on his treatment plan; he verbalizes understanding and agreement with this plan. Clinical Impression: Left sided rib fractures. Status post fall. Decision-Making: Initially my differential diagnosis I considered chest contusion, rib fractures, pneumonia, pulmonary embolism, shingles and other causes. Disposition: Patient discharged home in stable condition; prior to departure he was reassessed and subjectively reported he was feeling better and rated his discomfort 3/10. He continued to deny shortness of breath or difficulty breathing. Plan: Comfort measures were discussed with the patient including a sliding pain medication scale of acetaminophen and [place] in the use of ice. Patient was encouraged to avoid NSAIDs because of his esophageal disease. Patient was given an incentive spirometer and instructed on achieves and its purpose. Patient was encouraged to follow-up with his primary care provider for recheck in 5-6 days. Patient was encouraged return ED for worsening/uncontrolled pain, shortness of breath, coughing up blood, fevers, wheezing or any new/concerning symptoms.
[2017-05-20] MEDS ORDERED: SPIR50TA2 PO (11:31)
[2017-05-20] MEDS ORDERED: PROP20TA67 PO (11:31)
== END 2016-10-30 12:00 | disposition home or self-care (01) ==
LOC: C.EDB 09:53 → C.EDC 12:00
DX: S22.42XA Multiple fractures of ribs, left side, initial encounter for closed fracture (principal); R05 Cough; G89.29 Other chronic pain; M54.5 Low back pain; K21.9 Gastro-esophageal reflux disease without esophagitis; Z79.899 Other long term (current) drug therapy; W01.0XXA Fall on same level from slipping, tripping and stumbling without subsequent striking against object, initial encounter; Y92.524 Gas station as the place of occurrence of the external cause

== ENCOUNTER → 2017-02-26 | Outpatient (CLI) | payer OTHER ==
[~2017-02-26] MED LIST changes: +ACET1TAB84 PO; +HYDR-5688 PO; -LBR25 PO; +PROP20TA67 PO
--- NOTE | 2017-02-26 10:28 | DIAGNOSTIC IMAGING REPORT ---
ABDOMINAL ULTRASOUND COMPLETE HISTORY: Generalized ABD Pain, weight GAIN. COMPARISON: None. FINDINGS: Pancreas: The pancreatic head and tail are obscured by overlying bowel gas. The remaining portions of the pancreas are within normal limits. Liver: Nodular contour consistent with cirrhosis. Coarse echotexture without focal mass within the liver. The main portal vein is patent. Gallbladder: No gallbladder wall thickening. No gallstones. CBD: 5 mm. Kidneys: Enlarged measuring 14.5 cm in length. Spleen: Normal in size. Aorta: Obscured by overlying bowel gas. IVC: Patent. Miscellaneous: Small amount of ascites. IMPRESSION: 1. Cirrhotic liver with mild splenomegaly. 2. Small amount of ascites. 3. Normal gallbladder. No gallstones. Electronically signed by: Nawaf Castellon M.D. 02/26/2017 10:26 AM Dictated Date/Time: 02/26/2017 10:24 AM
== END | disposition home or self-care (01) ==
LOC: C.ULTR 07:38
PROVIDERS: ATTEND Student in an Organized Health Care Education/Training Program
DX: R10.9 Unspecified abdominal pain (principal)

== ENCOUNTER 2017-03-26 12:22 | Emergency (ER) | payer SELFPAY ==
[~2017-03-26] VITALS: Ht 177.8 cm; Wt 114.0 kg
[~2017-03-26 12:22] MED LIST changes: -FURO-85 PO; -PROP20TA67 PO
[2017-03-26 12:24] VITALS: TEMP 36.9
[2017-03-26 12:39] VITALS: O2SAT 97
[2017-03-26] MEDS ORDERED: SODIUM CHLORIDE 0.9% 1000ML 1,000 ML IV STA (12:45)
[2017-03-26 12:47] VITALS: Ht 177.8 cm; Wt 114.0 kg
[2017-03-26 12:54] LABS: BASO % 0.5 %; BASO ABS # 0.03 K/uL (0-0.2); COMPLETE YES; EOS % 4.4 %; HEMATOCRIT 34.5 % (42-52); IG% 0.2 %; LYMPH ABS # 1.41 K/uL (1.2-3.4); MEAN CELL VOLUME 92.5 fL (80-100); MEAN CORPUSCULAR HEMOGLOBIN 31.4 pg (25-34); MEAN CORPUSCULAR HGB CONC 33.9 g/dl (32-36); MEAN PLATELET VOLUME 9.5 fL (7.4-10.4); MONO % 12.9 %; PLATELET COUNT 160 K/uL (130-400); RED BLOOD COUNT 3.73 M/uL (4.7-6.1); WHITE BLOOD COUNT 5.88 K/uL (4.8-10.8)
[2017-03-26 13:08] LABS: ALT/SGPT 15 U/L (12-78); BLOOD UREA NITROGEN 15 mg/dl (7-18); BUN/CREATININE RATIO 11.5 (10-20); CALCIUM 8.5 mg/dl (8.5-10.1); CARBON DIOXIDE 26 mmol/L (21-32); CHLORIDE 108 mmol/L (98-107); GLUCOSE 104 mg/dl (70-99); MAGNESIUM 1.8 mg/dl (1.8-2.4); POTASSIUM 3.7 mmol/L (3.5-5.1); SODIUM 140 mmol/L (136-145)
[2017-03-26 13:10] LABS: INR 1.2 (0.9-1.1); PARTIAL THROMBOPLASTIN RATIO 1.3; PROTHROMBIN TIME (PATIENT) 12.4 SECONDS (9.0-12.0)
--- NOTE | 2017-03-26 13:10 | DIAGNOSTIC IMAGING REPORT ---
SINGLE VIEW CHEST CLINICAL HISTORY: Generalized weakness. FINDINGS: An AP, portable, upright chest radiograph is compared to chest x-ray and chest CT dated 04/30/2016. The examination is degraded by portable technique, large body habitus, apical lordotic positioning, and patient rotation. The heart is enlarged. The pulmonary vasculature is noncongested. There is mild elevation of the right hemidiaphragm and bibasilar atelectasis. The lungs and pleural spaces are otherwise clear. No pneumothorax is seen. Chronic posttraumatic deformity suggested in left humeral head. IMPRESSION: Cardiac enlargement with no acute cardiopulmonary abnormality. Electronically signed by: Patrick Manuel M.D. 03/26/2017 1:09 PM Dictated Date/Time: 03/26/2017 1:08 PM
[2017-03-26 13:18] LABS: ALKALINE PHOSPHATASE 138 U/L (45-117); AST/SGOT 32 U/L (15-37); CKMB/CK RATIO 3.3 (0-3.0)
[2017-03-26] MEDS ORDERED: PROP20TA67 PO (13:40)
[2017-03-26] MEDS ORDERED: FURO-85 PO (13:40)
--- NOTE | 2017-03-26 14:45 | EMERGENCY ROOM VISIT NOTE ---
History First contact with patient: 12:45 Chief Complaint: CHEST PAIN Stated Complaint: CHEST PAINS/PAINS GO ACROSS CHEST Nursing Triage Summary: Patient reports intermittent cody across his chest and in his left ribs since Thursday. Patient denies pain at present time and also denies shortness of breath. History of Present Illness The patient is a 61 year old male who presents to the Emergency Room with complaints of left-sided chest pain. He denies any shortness of breath. The pain started 4 days ago and has been intermittent although this episode today lasted over 8 hours. It was not associated with exertion. He notes if he turns wrong way or lies down in a certain position that he can reproduce the symptoms. The patient notes that he has swelling in his legs with that is chronic for him. He has liver disease secondary to alcoholism. He notes having cut down quite a bit but still does consume alcohol. The patient denies any direct trauma currently but notes a history of rib fractures 4-5 months ago. Pt denies LOC, headache, fevers, chills, diaphoresis, visual changes, neck pain, breathing difficulties, nausea, vomiting, abdominal pain, back pain, melena, hematochezia, urinary symptoms, numbness, weakness, lymphadenopathy, rash, or other complaints. Review of Systems See HPI for pertinent positives and negatives. A total of ten systems were reviewed and were otherwise negative. Past Medical/Surgical History Medical Problems: (1) Alcohol abuse (2) Alcohol withdrawal (3) Esophageal varices (4) Hypertension Family History Diabetes mellitus Heart disease Lung disease Social History Smoking Status: Current Some Day Smoker Alcohol Use: occasionally Marital Status: single Housing Status: lives alone Occupation Status: employed Current/Historical Medications Scheduled Calcium/Vitamin D (Os-Adair 500 Plus D), 1 TAB PO DAILY Propranolol (Inderal), 1-2 TAB PO DAILY Scheduled PRN Acetaminophen (Tylenol Arthritis Ext Rel), 650 MG PO for Pain Furosemide (Lasix), 20 MG PO DAILY PRN for LEG SWELLING Hydroxyzine HCl (Hydroxyzine Pamoate), 1 TAB PO QID PRN for Anxiety Miscellaneous Medications Magnesium Oxide (Mag-Ox), 400 MG PO Physical Exam Vital Signs Date Time Temp Pulse Resp B/P (MAP) Pulse Ox O2 Delivery O2 Flow Rate FiO2 03/26/17 14:21 63 16 134/75 98 Room Air 03/26/17 12:42 72 03/26/17 12:39 97 Room Air 03/26/17 12:39 97 Room Air 03/26/17 12:24 36.9 74 17 138/78 97 Room Air Physical Exam GENERAL: Awake, alert, well-appearing, in no distress HENT: Normocephalic, atraumatic. Oropharynx unremarkable. EYES: Normal conjunctiva. Sclera non-icteric. NECK: Supple. No nuchal rigidity. FROM. No JVD. RESPIRATORY: Clear to auscultation. CARDIAC: Regular rate, normal rhythm. Extremities warm and well perfused. Pulses equal. ABDOMEN: Soft, minimally distended. +fluid wave. No tenderness to palpation. No rebound or guarding. No masses. RECTAL: Deferred. MUSCULOSKELETAL: Chest examination reveals no tenderness. The back is symmetrical on inspection without obvious abnormality. There is no CVA tenderness to palpation. No joint edema. LOWER EXTREMITIES: Calves are equal size bilaterally and non-tender. 2+ edema. No discoloration. NEURO: Normal sensorium. No sensory or motor deficits noted. SKIN: No rash or jaundice noted. Medical Decision & Procedures Laboratory Results 03/26/17 12:42 Red Blood Count 3.73, Mean Corpuscular Volume 92.5, Mean Corpuscular Hemoglobin 31.4, Mean Corpuscular Hemoglobin Concent 33.9, Mean Platelet Volume 9.5, Neutrophils (%) (Auto) 58.0, Lymphocytes (%) (Auto) 24.0, Monocytes (%) (Auto) 12.9, Eosinophils (%) (Auto) 4.4, Basophils (%) (Auto) 0.5, Neutrophils # (Auto ) 3.41, Lymphocytes # (Auto) 1.41, Monocytes # (Auto) 0.76, Eosinophils # (Auto ) 0.26, Basophils # (Auto) 0.03 03/26/17 12:42 Test 03/26/17 12:42 03/26/17 13:00 White Blood Count 5.88 K/uL (4.8-10.8) Red Blood Count 3.73 M/uL (4.7-6.1) Hemoglobin 11.7 g/dL (14.0-18.0) Hematocrit 34.5 % (42-52) Mean Corpuscular Volume 92.5 fL (80-100) Mean Corpuscular Hemoglobin 31.4 pg (25-34) Mean Corpuscular Hemoglobin Concent 33.9 g/dl (32-36) Platelet Count 160 K/uL (130-400) Mean Platelet Volume 9.5 fL (7.4-10.4) Neutrophils (%) (Auto) 58.0 % Lymphocytes (%) (Auto) 24.0 % Monocytes (%) (Auto) 12.9 % Eosinophils (%) (Auto) 4.4 % Basophils (%) (Auto) 0.5 % Neutrophils # (Auto) 3.41 K/uL (1.4-6.5) Lymphocytes # (Auto) 1.41 K/uL (1.2-3.4) Monocytes # (Auto) 0.76 K/uL (0.11-0.59) Eosinophils # (Auto) 0.26 K/uL (0-0.5) Basophils # (Auto) 0.03 K/uL (0-0.2) RDW Standard Deviation 51.4 fL (36.4-46.3) RDW Coefficient of Variation 15.1 % (11.5-14.5) Immature Granulocyte % (Auto) 0.2 % Immature Granulocyte # (Auto) 0.01 K/uL (0.00-0.02) Prothrombin Time 12.4 SECONDS (9.0-12.0) Prothromb Time International Ratio 1.2 (0.9-1.1) Activated Partial Thromboplast Time 33.9 SECONDS (21.0-31.0) Partial Thromboplastin Ratio 1.3 Anion Gap 6.0 mmol/L (3-11) Est Creatinine Clear Calc Drug Dose 75.5 ml/min Estimated GFR () 68.3 Estimated GFR (Non- 58.9 BUN/Creatinine Ratio 11.5 (10-20) Calcium Level 8.5 mg/dl (8.5-10.1) Magnesium Level 1.8 mg/dl (1.8-2.4) Total Bilirubin 1.0 mg/dl (0.2-1) Direct Bilirubin 0.5 mg/dl (0-0.2) Aspartate Amino Transf (AST/SGOT) 32 U/L (15-37) Alanine Aminotransferase (ALT/SGPT) 15 U/L (12-78) Alkaline Phosphatase 138 U/L (45-117) Total Creatine Kinase 39 U/L (39-308) Creatine Kinase MB 1.3 ng/ml (0.5-3.6) Creatine Kinase MB Ratio 3.3 (0-3.0) Troponin I < 0.015 ng/ml (0-0.045) Total Protein 6.0 gm/dl (6.4-8.2) Albumin 2.0 gm/dl (3.4-5.0) Thyroid Stimulating Hormone (TSH) 2.430 uIu/ml (0.300-4.500) Bedside D-Dimer > 450 ng/mlFEU (0-450) Medications Administered Medications (Trade) Dose Ordered Sig/Oralia Route Start Time Stop Time Status Last Admin Dose Admin Sodium Chloride 1,000 ml @ 125 mls/hr Q8H STAT IV 03/26/17 12:45 03/26/17 20:44 03/26/17 12:55 125 MLS/HR Medical Decision Triage Nursing notes reviewed. The patient's presentation and history were concerning for chest pain. Etiologies such as musculoskeletal, cardiac ischemia, aortic dissection, pulmonary embolism, pneumonia, pneumothorax,infections, gastrointestinal, as well as others were entertained. The patient was evaluated. He is doing well. He was gently hydrated with normal saline. Blood work is obtained. ECG was done and was nonischemic. Laboratory testing was unremarkable except for mildly elevated INR. Cardiac troponin was negative. D- dimer was performed and was mildly elevated. CT PE study was done. Impression Primary Impression: Left sided chest pain Departure Information Referrals Shreyas Post M.D. (PCP) Patient Instructions [facility]
[2017-03-26] MEDS ORDERED: OPTIRAY 320 IV PRN (15:45)
--- NOTE | 2017-03-26 17:41 | DIAGNOSTIC IMAGING REPORT ---
CT ANGIOGRAM OF THE CHEST CLINICAL HISTORY: Atypical chest pain. Elevated d-dimer. COMPARISON STUDY: 04/30/2016 TECHNIQUE: Following the IV administration of 88 mL of Optiray-320, CT angiogram of the thorax was performed from the thoracic inlet to the lung bases utilizing the pulmonary embolus protocol. Images are reviewed in the axial, sagittal, and coronal planes. IV contrast was administered without complication. MIP imaging was performed. A dose lowering technique was utilized adhering to the principles of ALARA. CT DOSE: 534.30 mGy.cm FINDINGS: Visualized portions the upper abdomen reveal moderate ascites. Underlying liver cirrhosis is suspected. There is esophageal wall thickening.. There is persistent mild mediastinal lymphadenopathy. There is no pathologic hilar or axillary lymphadenopathy. There was no evidence of thoracic aortic dilatation. There are coronary artery calcifications present. There were no pulmonary artery filling defects to indicate acute pulmonary embolism. There is a small left pleural effusion There are dependent left lower lobe airspace opacities, likely atelectatic. Evaluation is mildly limited due to respiratory motion artifact IMPRESSION: 1. No evidence of acute pulmonary embolism 2. Mild cardiomegaly and coronary artery calcifications 3. Small left pleural effusion with left basilar airspace opacities likely representing compressive atelectasis 4. Hepatic cirrhosis 5. Moderate ascites 6. Stable mild mediastinal lymphadenopathy 7. Esophageal wall thickening Electronically signed by: Phill Sandoval M.D. 03/26/2017 5:40 PM Dictated Date/Time: 03/26/2017 5:34 PM
[2017-03-26 19:48] LABS: URINE APPEARANCE CLOUDY (CLEAR); URINE COLOR ORANGE; URINE EPITHELIAL CELL AUTO >30 /lpf (0-5); URINE NITRITE NEG (NEG); URINE PH 6.5 (4.5-7.5); URINE SPECIFIC GRAVITY 1.042 (1.000-1.030); UROBILINOGEN POS (NEG)
[2017-03-26 19:59] LABS: MANUAL MICROSCOPIC REQUIRED? NO; REVIEW REQ? YES
[2017-03-26 20:01] LABS: URINE BILIRUBIN NEG (NEG)
[2017-03-26 20:39] VITALS: BP 135/76; PULSE 72; O2SAT 96
--- NOTE | 2017-03-28 18:17 | EMERGENCY ROOM VISIT NOTE ---
ED Visit Note First contact with patient: 16:40 I received this pt at the change of shift from Dr Browning pending CTA chest. CT was obtained and is negative for PE. CT ANGIOGRAM OF THE CHEST CLINICAL HISTORY: Atypical chest pain. Elevated d-dimer. COMPARISON STUDY: 04/30/2016 TECHNIQUE: Following the IV administration of 88 mL of Optiray-320, CT angiogram of the thorax was performed from the thoracic inlet to the lung bases utilizing the pulmonary embolus protocol. Images are reviewed in the axial, sagittal, and coronal planes. IV contrast was administered without complication. MIP imaging was performed. A dose lowering technique was utilized adhering to the principles of ALARA. CT DOSE: 534.30 mGy.cm FINDINGS: Visualized portions the upper abdomen reveal moderate ascites. Underlying liver cirrhosis is suspected. There is esophageal wall thickening.. There is persistent mild mediastinal lymphadenopathy. There is no pathologic hilar or axillary lymphadenopathy. There was no evidence of thoracic aortic dilatation. There are coronary artery calcifications present. There were no pulmonary artery filling defects to indicate acute pulmonary embolism. There is a small left pleural effusion There are dependent left lower lobe airspace opacities, likely atelectatic. Evaluation is mildly limited due to respiratory motion artifact IMPRESSION: 1. No evidence of acute pulmonary embolism 2. Mild cardiomegaly and coronary artery calcifications 3. Small left pleural effusion with left basilar airspace opacities likely representing compressive atelectasis 4. Hepatic cirrhosis 5. Moderate ascites 6. Stable mild mediastinal lymphadenopathy 7. Esophageal wall thickening Electronically signed by: Phill Sandoval M.D. 03/26/2017 5:40 PM Dictated Date/Time: 03/26/2017 5:34 PM Case management met with the patient and provided insurance information. He was d/c and advised to establish again with PCP and GI. He will return to the ED for worsening of symptoms or any medical concerns.
== END 2017-03-26 20:39 | disposition home or self-care (01) ==
LOC: C.EDB 12:24
DX: R07.9 Chest pain, unspecified (principal); K70.9 Alcoholic liver disease, unspecified; I10 Essential (primary) hypertension; I85.10 Secondary esophageal varices without bleeding; F17.210 Nicotine dependence, cigarettes, uncomplicated; Z83.3 Family history of diabetes mellitus; Z79.899 Other long term (current) drug therapy

== ENCOUNTER → 2017-06-26 | Day surgery (SDC) | payer OTHER ==
[2017-05-20 11:31] VITALS: Ht 177.8 cm
[~2017-06-26] VITALS: Ht 177.8 cm
[~2017-06-26] MED LIST changes: -ACET1TAB84 PO; -CALC500C70 PO; -FLV1 PO; +FURO-85 PO; -HYDR-5688 PO; +LIDOCAINE HCL 2% 2 ML VIAL (20MG/ML) ONE; -LISI-729 PO; -MAGN400T6 PO; +PROP20TA67 PO; +PROPOFOL IV EMULSION 10 MG/ML 20 ML VIAL IV ONE; +SPIR50TA2 PO; -THM100 PO; -VST25HP PO
--- NOTE | 2017-06-26 13:25 | Endo History and Physical ---
History & Physical Date of Service: Jun 26, 2017. Chief Complaint: esophageal varices,screening Referring Physician: Dr. Shreyas Post History of Present Illness For EGD and colonoscopy Past Surgical History Hx Cardiac Surgery: No Hx Internal Defibrillator: No Hx Pacemaker: No Hx Abdominal Surgery: No Hx of Implantable Prosthesis: No Hx Post-Op Nausea and Vomiting: No Hx Cancer Surgery: No Hx Thoracic Surgery: No Hx Orthopedic: Yes (LEFT SHOULDER SX, RT/LEFT KNEE ARTHROSCOPY) Hx Urinary Tract Surgery: No Family History None Social History Smoking Status: Current Every Day Smoker Hx Substance Use: No Hx Alcohol Use: No (QUIT DRINKING "? 1 YEAR AGO") Allergies Coded Allergies: No Known Allergies (Verified , 05/20/17) Current Medications Reported Home Medications Medications Dose Route/Sig Max Daily Dose Days Date Category Inderal (Propranolol HCl) 20 Mg Tab 1-2 Tab PO DAILY PRN 05/20/17 Reported Aldactone (Spironolactone) 50 Mg Tab 50 Mg PO DAILY 05/20/17 Reported Lasix (Furosemide) 20 Mg Tab 20 Mg PO DAILY PRN 03/26/17 Reported Vital Signs Weight (Kilograms): 0 Height (Feet): 5 Height (Inches): 10 Date Time Temp Pulse Resp B/P (MAP) Pulse Ox O2 Delivery O2 Flow Rate FiO2 06/26/17 13:02 36.8 68 20 141/77 (98) 98 Room Air Physical Exam General Appearance: WD/WN Respiratory/Chest: Respiratory effort: no dyspnea Cardiovascular: Heart Auscultation: RRR Abdomen: Inspection & Palpation: soft Assessment and Plan Varices and screening for EGD and colonoscopy
--- NOTE | 2017-06-26 14:17 | Discharge Instructions ---
Endoscopy Patient Instructions Date / Procedure(s) Performed Jun 26, 2017. Colonoscopy, EGD Allergy Information Coded Allergies: No Known Allergies (Verified , 05/20/17) Discharge Date / Findings Jun 26, 2017. vaices, diverticulosis, polyps Medication Instructions Restart Stopped Medication(s): resume meds Reported Home Medications Medications Dose Route/Sig Max Daily Dose Days Date Category Inderal (Propranolol HCl) 20 Mg Tab 1-2 Tab PO DAILY PRN 05/20/17 Reported Aldactone (Spironolactone) 50 Mg Tab 50 Mg PO DAILY 05/20/17 Reported Lasix (Furosemide) 20 Mg Tab 20 Mg PO DAILY PRN 03/26/17 Reported Provider Instructions Activity Restrictions - No exercising or heavy lifting for 24 hours. - Do not drink alcohol the day of the procedure. - Do not drive a car or operate machinery until the day after the procedure. - Do not make any important decisions or sign important papers in 24 hours after the procedure. Following Day: - Return to full activity which may include returning to work/school. Diet Start your diet with liquids and light foods (jello, soup, juice, toast). Then eat your usual diet if not nauseated. Treatment For Common After Affects For mild abdominal pain, bloating, or excessive gas: - Rest - Eat lightly - Lie on right side Follow-Up Information Follow-up with Dr. Shreyas Post as scheduled Anesthesia Information What You Should Know You have had a procedure that required some medicine to reduce anxiety and discomfort. This treatment is called moderate sedation. After receiving the treatment, you may be sleepy, but you will be able to breathe on your own. The effects of the treatment may last for several hours. Follow these instructions along with Activity/Diet recommendations noted above: * Do NOT do anything where dizziness or clumsiness would be dangerous. * Rest quietly at home today, then you can be up and about tomorrow. * Have a responsible person stay with you the rest of today. * You may have had an I.V. today. If so, you may take the dressing off later today. Recommendations Call your doctor if: * Trouble breathing * Continuous vomiting for more than 24 hours * Temperature above 101 degrees * Severe abdominal pain or bloating * Pain not relieved by pain medicine ordered * There is increased drainage or redness from any incision * A large amount of rectal bleeding greater than 2-3 tablespoons. (If you had a polyp/s removed or have hemorrhoids, a small amount of blood - from the rectum is to be expected.) * You have any unanswered questions or concerns. IN THE EVENT OF A SERIOUS EMERGENCY, GO TO THE NEAREST EMERGENCY ROOM Your discharge instructions were prepared by provider Randy Live. Patient Instructions Signature Page Rajeev Lovell Patient (or Guardian) Signature/Date: I have read and understand the instructions given to me by my caregivers. Caregiver/RN/Doctor Signature/Date: The above-named patient and/or guardian has received patient instructions on this date. + Original Patient Signature Page (only) stays with chart. Please make copy for patient.
--- NOTE | 2017-06-26 14:21 | GI REPORT ---
Procedure Date: 06/26/2017 1:30 PM Procedure: Upper GI endoscopy Indications: Cirrhosis rule out esophageal varices, Variceal screening (no known varices or prior bleeding) Medicines: Propofol total dose 750 mg IV, Lidocaine 60 mg IV Complications: No immediate complications. Estimated Blood Loss: Estimated blood loss: none. Procedure: Pre-Anesthesia Assessment: - Prior to the procedure, a History and Physical was performed, and patient medications, allergies and sensitivities were reviewed. The patient's tolerance of previous anesthesia was reviewed. - The risks and benefits of the procedure and the sedation options and risks were discussed with the patient. All questions were answered and informed consent was obtained. After obtaining informed consent, the endoscope was passed under direct vision. Throughout the procedure, the patient's blood pressure, pulse, and oxygen saturations were monitored continuously. The scope was introduced through the mouth, and advanced to the second part of duodenum. The upper GI endoscopy was accomplished without difficulty. The patient tolerated the procedure well. Findings: Grade II varices were found in the middle third of the esophagus and in the lower third of the esophagus. Five bands were successfully placed with complete eradication, resulting in deflation of varices. There was no bleeding during, and at the end, of the procedure. The entire examined stomach was normal. The examined duodenum was normal. Impression: - Grade II esophageal varices. Completely eradicated. Banded. - Normal stomach. - Normal examined duodenum. - No specimens collected. Recommendation: - Discharge patient to home (ambulatory). - Continue present medications. - Return to primary care physician GRACYN. Randy Live M.D. Randy Live MD 06/26/2017 2:20:49 PM This report has been signed electronically. Note Initiated On: 06/26/2017 1:30 PM I attest to the content of the Intraoperative Record and orders documented therein, exceptions below
--- NOTE | 2017-06-26 14:25 | GI REPORT ---
Procedure Date: 06/26/2017 1:30 PM Procedure: Colonoscopy Indications: Screening for colorectal malignant neoplasm Medicines: Propofol total dose 750 mg IV, Lidocaine 60 mg IV Complications: No immediate complications. Estimated Blood Loss: Estimated blood loss was minimal. Procedure: Pre-Anesthesia Assessment: - Prior to the procedure, a History and Physical was performed, and patient medications, allergies and sensitivities were reviewed. The patient's tolerance of previous anesthesia was reviewed. - The risks and benefits of the procedure and the sedation options and risks were discussed with the patient. All questions were answered and informed consent was obtained. After I obtained informed consent, the scope was passed under direct vision. Throughout the procedure, the patient's blood pressure, pulse, and oxygen saturations were monitored continuously. The scope was introduced through the anus and advanced to the cecum, identified by appendiceal orifice and ileocecal valve. The colonoscopy was somewhat difficult due to significant looping. Successful completion of the procedure was aided by applying abdominal pressure. The patient tolerated the procedure well. The quality of the bowel preparation was good. Findings: Multiple diverticula were found in the sigmoid colon. A 4 mm polyp was found in the transverse colon. The polyp was sessile. The polyp was removed with a cold snare. Resection and retrieval were complete. Estimated blood loss was minimal. A 5 mm polyp was found in the transverse colon. The polyp was sessile. The polyp was removed with a cold snare. Resection and retrieval were complete. Estimated blood loss was minimal. A 15 mm polyp was found in the transverse colon. The polyp was sessile. The polyp was removed with a hot snare. Resection and retrieval were complete. Estimated blood loss: none. A 30 mm polyp was found in the mid ascending colon. The polyp was multi-lobulated. A 20 mm polyp was found at the hepatic flexure. The polyp was multi-lobulated. Impression: - Diverticulosis in the sigmoid colon. - One 4 mm polyp in the transverse colon, removed with a cold snare. Resected and retrieved. - One 5 mm polyp in the transverse colon, removed with a cold snare. Resected and retrieved. - One 15 mm polyp in the transverse colon, removed with a hot snare. Resected and retrieved. - One 30 mm polyp in the mid ascending colon. - One 20 mm polyp at the hepatic flexure. Recommendation: - Repeat colonoscopy in 1 month for retreatment. - Return to primary care physician PRN. - Discharge patient to home (ambulatory). - Continue present medications. Randy Live M.D. Randy Live MD 06/26/2017 2:25:19 PM This report has been signed electronically. Note Initiated On: 06/26/2017 1:30 PM I attest to the content of the Intraoperative Record and orders documented therein, exceptions below
--- NOTE | 2017-06-26 14:34 | Anesthesiology Progress Note ---
Anesthesia Post Op Note Date & Time Jun 26, 2017 at 14:34 Vital Signs Pain Intensity: 0 Vital Signs Past 12 Hours Date Time Temp Pulse Resp B/P (MAP) Pulse Ox O2 Delivery O2 Flow Rate FiO2 06/26/17 13:02 36.8 68 20 141/77 (98) 98 Room Air Notes Mental Status: alert / awake / arousable, participated in evaluation Pt Amnestic to Procedure: Yes Nausea / Vomiting: adequately controlled Pain: adequately controlled Airway Patency, RR, SpO2: stable & adequate BP & HR: stable & adequate Hydration State: stable & adequate Anesthetic Complications: no major complications apparent
[2017-06-26 14:49] VITALS: BP 159/86; PULSE 78; O2SAT 99
== END | disposition home or self-care (01) ==
LOC: C.GI 12:13
PROVIDERS: ATTEND Internal Medicine Gastroenterology
DX: Z12.11 Encounter for screening for malignant neoplasm of colon (principal); K57.30 Diverticulosis of large intestine without perforation or abscess without bleeding; D12.3 Benign neoplasm of transverse colon; D12.2 Benign neoplasm of ascending colon; I85.00 Esophageal varices without bleeding; F32.9 Major depressive disorder, single episode, unspecified; Z98.890 Other specified postprocedural states; F17.200 Nicotine dependence, unspecified, uncomplicated

== ENCOUNTER 2017-10-07 22:22 | Emergency (ER) | payer OTHER ==
[~2017-10-07] VITALS: Ht 180.3 cm; Wt 86.7 kg
[~2017-10-07 22:22] MED LIST changes: -LIDOCAINE HCL 2% 2 ML VIAL (20MG/ML) ONE; -PROPOFOL IV EMULSION 10 MG/ML 20 ML VIAL IV ONE
[2017-10-07 22:32] VITALS: Ht 180.3 cm; Wt 86.7 kg
[2017-10-07] MEDS ORDERED: LORAZEPAM 1 MG TAB SL PRN (23:45)
--- NOTE | 2017-10-07 23:51 | EMERGENCY ROOM VISIT NOTE ---
History Report prepared by Rosa: Andrey Plata Under the Supervision of: Dr. Kaity Lane D.O. First contact with patient: 23:13 Chief Complaint: MENTAL HEALTH EVALUATION Stated Complaint: 302 History of Present Illness The patient is a 62 year old male who presents to the Emergency Room with complaints of an episodic general mental health evaluation [employer] COUNSEL[employer]. The patient states that he is okay, though he reports being tired of life. He states that he has felt overwhelmed for a while. He notes that he has been thinking about killing himself every day. He notes there is not a day that goes by without thinking about harming himself, though he states that he does not want to harm himself. He thinks about being involved in a purposeful motor vehicle accident. He notes that [facility]. He denies any thoughts of harming others. He denies any hallucinations. [facility] has a [facility] He regularly takes medication for water retention once a day. He states that he lost 50 pounds in one month and then was placed on the medication, though he is unable to confirm the name of the medication. He takes the medication once a day. He denies any other medications. He denies any other underlying medical problems. He is a current smoker. He states that he drinks until he feels comfortable enough to fall asleep. He denies any recreational drug use. Source of History: patient Onset: MORTGAGE COUNSELOR Position: other (general) Quality: other (mental health evaluation) Timing: other (episodic) Note: He denies any HI or hallucinations. He notes SI. Review of Systems See HPI for pertinent positives & negatives. A total of 10 systems reviewed and were otherwise negative. Past Medical & Surgical Medical Problems: (1) Alcohol abuse (2) Alcohol withdrawal (3) Esophageal varices (4) Hypertension Family History Diabetes mellitus Heart disease Lung disease Social History Smoking Status: Current Every Day Smoker Alcohol Use: occasionally Marital Status: single Housing Status: lives alone Occupation Status: employed Current/Historical Medications Scheduled Spironolactone (Aldactone), 50 MG PO DAILY Scheduled PRN Furosemide (Lasix), 20 MG PO DAILY PRN for LEG SWELLING Propranolol (Inderal), 20-40 MG PO TID PRN for ESOPHAGEAL PROBLEMS" Allergies Coded Allergies: No Known Allergies (Verified , 05/20/17) Physical Exam Vital Signs Date Time Temp Pulse Resp B/P (MAP) Pulse Ox O2 Delivery O2 Flow Rate FiO2 10/08/17 14:40 36.9 78 20 122/68 98 10/08/17 04:31 76 18 117/64 98 Room Air 10/08/17 00:30 76 18 129/71 98 Room Air 10/07/17 22:32 36.7 88 18 117/72 98 Room Air Physical Exam GENERAL: alert, well appearing, well nourished, no distress, non-toxic. Agitated. Hyperverbal. EYE EXAM: normal conjunctiva, PERRL and EOM's grossly intact OROPHARYNX: no exudate, no erythema, lips, buccal mucosa, and tongue normal and mucous membranes are moist NECK: supple, no nuchal rigidity, no adenopathy, non-tender LUNGS: Decreased lung sounds bilaterally. No wheezes, rhonchi, or rales. Normal chest wall mechanics HEART: no murmurs, S1 normal and S2 normal ABDOMEN: abdomen soft, non-tender, normo-active bowel sounds, no masses, no rebound or guarding. BACK: Back is symmetrical on inspection and there is no deformity, no midline tenderness, no CVA tenderness. SKIN: no rashes and no bruising UPPER EXTREMITIES: upper extremities are grossly normal. LOWER EXTREMITIES: No pitting edema. NEURO EXAM: Normal sensorium, cranial nerves II-XII grossly intact, normal speech, no gross weakness of arms, no gross weakness of legs. PSYCH: Depression. SI. No HI. No hallucinations. Medical Decision & Procedures Laboratory Results 10/07/17 23:50 Red Blood Count 4.32, Mean Corpuscular Volume 94.7, Mean Corpuscular Hemoglobin 32.9, Mean Corpuscular Hemoglobin Concent 34.7, Mean Platelet Volume 9.7, Neutrophils (%) (Auto) 45.8, Lymphocytes (%) (Auto) 40.7, Monocytes (%) (Auto) 5.9, Eosinophils (%) (Auto) 6.1, Basophils (%) (Auto) 1.3, Neutrophils # (Auto) 2.80, Lymphocytes # (Auto) 2.48, Monocytes # (Auto) 0.36, Eosinophils # (Auto) 0.37, Basophils # (Auto) 0.08 4/4/18 23:50 Test 10/07/17 23:50 10/08/17 10:55 10/08/17 11:52 White Blood Count 6.10 K/uL (4.8-10.8) Red Blood Count 4.32 M/uL (4.7-6.1) Hemoglobin 14.2 g/dL (14.0-18.0) Hematocrit 40.9 % (42-52) Mean Corpuscular Volume 94.7 fL (80-100) Mean Corpuscular Hemoglobin 32.9 pg (25-34) Mean Corpuscular Hemoglobin Concent 34.7 g/dl (32-36) Platelet Count 141 K/uL (130-400) Mean Platelet Volume 9.7 fL (7.4-10.4) Neutrophils (%) (Auto) 45.8 % Lymphocytes (%) (Auto) 40.7 % Monocytes (%) (Auto) 5.9 % Eosinophils (%) (Auto) 6.1 % Basophils (%) (Auto) 1.3 % Neutrophils # (Auto) 2.80 K/uL (1.4-6.5) Lymphocytes # (Auto) 2.48 K/uL (1.2-3.4) Monocytes # (Auto) 0.36 K/uL (0.11-0.59) Eosinophils # (Auto) 0.37 K/uL (0-0.5) Basophils # (Auto) 0.08 K/uL (0-0.2) RDW Standard Deviation 46.5 fL (36.4-46.3) RDW Coefficient of Variation 13.3 % (11.5-14.5) Immature Granulocyte % (Auto) 0.2 % Immature Granulocyte # (Auto) 0.01 K/uL (0.00-0.02) Anion Gap 4.0 mmol/L (3-11) Est Creatinine Clear Calc Drug Dose 85.8 ml/min Estimated GFR () 99.0 Estimated GFR (Non- 85.4 BUN/Creatinine Ratio 9.2 (10-20) Calcium Level 8.5 mg/dl (8.5-10.1) Total Bilirubin 0.6 mg/dl (0.2-1) Direct Bilirubin 0.4 mg/dl (0-0.2) Aspartate Amino Transf (AST/SGOT) 34 U/L (15-37) Alanine Aminotransferase (ALT/SGPT) 29 U/L (12-78) Alkaline Phosphatase 101 U/L (45-117) Total Protein 8.1 gm/dl (6.4-8.2) Albumin 3.6 gm/dl (3.4-5.0) Thyroid Stimulating Hormone (TSH) 0.894 uIu/ml (0.300-4.500) Urine Color DK YELLOW Urine Appearance CLEAR (CLEAR) Urine pH 5.0 (4.5-7.5) Urine Specific [place] 1.019 (1.000-1.030) Urine Protein NEG (NEG) Urine Glucose (UA) NEG (NEG) Urine Ketones NEG (NEG) Urine Occult Blood 3+ (NEG) Urine Nitrite NEG (NEG) Urine Bilirubin NEG (NEG) Urine Urobilinogen NEG (NEG) Urine Leukocyte Esterase TRACE (NEG) Urine WBC (Auto) 1-5 /hpf (0-5) Urine RBC (Auto) 5-10 /hpf (0-4) Urine Hyaline Casts (Auto) 1-5 /lpf (0-5) Urine Epithelial Cells (Auto) 20-30 /lpf (0-5) Urine Bacteria (Auto) NEG (NEG) Urine Opiates Screen NEG (NEG) Urine Methadone, Qualitative NEG (NEG) Urine Barbiturates NEG (NEG) Urine Phencyclidine (PCP) Level NEG (NEG) Ur Amphetamine/Methamphetamine NEG (NEG) MDMA (Ecstasy) Screen NEG (NEG) Urine Benzodiazepines Screen NEG (NEG) Urine Cocaine Metabolite NEG (NEG) Urine Marijuana (THC) NEG (NEG) Ethyl Alcohol mg/dL 51.6 mg/dl (0-3) Laboratory results per my review. ED Course 2318: The patient was evaluated in room A6. A complete history and physical exam was performed. 2345: Ordered Ativan 1 mg SL prn. Pt refused. 0048: Ordered Ativan 2 mg IM 0915: Pt seen/evaluated by psych director case management. 302 upheld and signed. Awaiting placement. Medical Decision Prior records/ancillary studies reviewed. Triage Nursing notes reviewed. The patient's history was concerning for possible psychiatric disturbance. Differential diagnosis: Etiologies such as mood disorder, infection, hypoglycemia, electrolyte abnormalities, cardiac sources, intracerebral event, toxicologic, neurologic, as well as others were entertained. Medication Reconcilliation Current Medication List: was personally reviewed by me Blood Pressure Screening Patient's blood pressure: Normal blood pressure Impression Primary Impression: Depression Additional Impressions: Alcohol intoxication Alcohol abuse Suicidal ideation Scribe Attestation The scribe's documentation has been prepared under my direction and personally reviewed by me in its entirety. I confirm that the note above accurately reflects all work, treatment, procedures, and medical decision making performed by me. Departure Information Dispostion Still a Patient Referrals No Doctor, Assigned (PCP) Patient Instructions My [facility] Problem Qualifiers Primary Impression: Depression Depression Type: unspecified Qualified Codes: F32.9 - Major depressive disorder, single episode, unspecified Additional Impressions: Alcohol intoxication Complication of substance-induced condition: uncomplicated Qualified Codes: F10.920 - Alcohol use, unspecified with intoxication, uncomplicated
[2017-10-07 23:59] LABS: BASO % 1.3 %; BASO ABS # 0.08 K/uL (0-0.2); EOS % 6.1 %; EOS ABS # 0.37 K/uL (0-0.5); HEMATOCRIT 40.9 % (42-52); HEMOGLOBIN 14.2 g/dL (14.0-18.0); IG# 0.01 K/uL (0.00-0.02); LYMPH % 40.7 %; LYMPH ABS # 2.48 K/uL (1.2-3.4); MEAN CELL VOLUME 94.7 fL (80-100); MEAN CORPUSCULAR HEMOGLOBIN 32.9 pg (25-34); MEAN CORPUSCULAR HGB CONC 34.7 g/dl (32-36); MEAN PLATELET VOLUME 9.7 fL (7.4-10.4); MONO % 5.9 %; MONO ABS # 0.36 K/uL (0.11-0.59); NEUT % 45.8 %; PLATELET COUNT 141 K/uL (130-400); RED CELL DISTRIBUTION WIDTH CV 13.3 % (11.5-14.5); RED CELL DISTRIBUTION WIDTH SD 46.5 fL (36.4-46.3)
[2017-10-08 00:19] LABS: ALBUMIN 3.6 gm/dl (3.4-5.0); CALCIUM 8.5 mg/dl (8.5-10.1); CREATININE 0.95 mg/dl (0.60-1.40); POTASSIUM 4.2 mmol/L (3.5-5.1)
[2017-10-08 00:40] LABS: TOTAL PROTEIN 8.1 gm/dl (6.4-8.2)
[2017-10-08] MEDS ORDERED: LORAZEPAM 2 MG/ML 1 ML VIAL IM STA (00:48)
[2017-10-08] MEDS ORDERED: LORAZEPAM 2 MG/ML 1 ML VIAL ONE (00:51)
--- NOTE | 2017-10-08 13:38 | EMERGENCY ROOM VISIT NOTE ---
ED Visit Note Received patient in signout at change of shift. History and physical verified by me. Patient is a 89 and has been accepted to the [facility]. Problem List Medical Problems: (1) Alcohol abuse Status: Chronic (2) Hypertension Status: Chronic Current/Historical Medications Scheduled Spironolactone (Aldactone), 50 MG PO DAILY Scheduled PRN Furosemide (Lasix), 20 MG PO DAILY PRN for LEG SWELLING Propranolol (Inderal), 20-40 MG PO TID PRN for ESOPHAGEAL PROBLEMS" Allergies Coded Allergies: No Known Allergies (Verified , 05/20/17) Vital Signs Date Time Temp Pulse Resp B/P (MAP) Pulse Ox O2 Delivery O2 Flow Rate FiO2 10/08/17 04:31 76 18 117/64 98 Room Air 10/08/17 00:30 76 18 129/71 98 Room Air 10/07/17 22:32 36.7 88 18 117/72 98 Room Air Laboratory Results 10/07/17 23:50 Red Blood Count 4.32, Mean Corpuscular Volume 94.7, Mean Corpuscular Hemoglobin 32.9, Mean Corpuscular Hemoglobin Concent 34.7, Mean Platelet Volume 9.7, Neutrophils (%) (Auto) 45.8, Lymphocytes (%) (Auto) 40.7, Monocytes (%) (Auto) 5.9, Eosinophils (%) (Auto) 6.1, Basophils (%) (Auto) 1.3, Neutrophils # (Auto) 2.80, Lymphocytes # (Auto) 2.48, Monocytes # (Auto) 0.36, Eosinophils # (Auto) 0.37, Basophils # (Auto) 0.08 10/07/17 23:50 Test 10/07/17 23:50 10/08/17 10:55 10/08/17 11:52 White Blood Count 6.10 K/uL (4.8-10.8) Red Blood Count 4.32 M/uL (4.7-6.1) Hemoglobin 14.2 g/dL (14.0-18.0) Hematocrit 40.9 % (42-52) Mean Corpuscular Volume 94.7 fL (80-100) Mean Corpuscular Hemoglobin 32.9 pg (25-34) Mean Corpuscular Hemoglobin Concent 34.7 g/dl (32-36) Platelet Count 141 K/uL (130-400) Mean Platelet Volume 9.7 fL (7.4-10.4) Neutrophils (%) (Auto) 45.8 % Lymphocytes (%) (Auto) 40.7 % Monocytes (%) (Auto) 5.9 % Eosinophils (%) (Auto) 6.1 % Basophils (%) (Auto) 1.3 % Neutrophils # (Auto) 2.80 K/uL (1.4-6.5) Lymphocytes # (Auto) 2.48 K/uL (1.2-3.4) Monocytes # (Auto) 0.36 K/uL (0.11-0.59) Eosinophils # (Auto) 0.37 K/uL (0-0.5) Basophils # (Auto) 0.08 K/uL (0-0.2) RDW Standard Deviation 46.5 fL (36.4-46.3) RDW Coefficient of Variation 13.3 % (11.5-14.5) Immature Granulocyte % (Auto) 0.2 % Immature Granulocyte # (Auto) 0.01 K/uL (0.00-0.02) Anion Gap 4.0 mmol/L (3-11) Est Creatinine Clear Calc Drug Dose 85.8 ml/min Estimated GFR () 99.0 Estimated GFR (Non- 85.4 BUN/Creatinine Ratio 9.2 (10-20) Calcium Level 8.5 mg/dl (8.5-10.1) Total Bilirubin 0.6 mg/dl (0.2-1) Direct Bilirubin 0.4 mg/dl (0-0.2) Aspartate Amino Transf (AST/SGOT) 34 U/L (15-37) Alanine Aminotransferase (ALT/SGPT) 29 U/L (12-78) Alkaline Phosphatase 101 U/L (45-117) Total Protein 8.1 gm/dl (6.4-8.2) Albumin 3.6 gm/dl (3.4-5.0) Thyroid Stimulating Hormone (TSH) 0.894 uIu/ml (0.300-4.500) Urine Color DK YELLOW Urine Appearance CLEAR (CLEAR) Urine pH 5.0 (4.5-7.5) Urine Specific [place] 1.019 (1.000-1.030) Urine Protein NEG (NEG) Urine Glucose (UA) NEG (NEG) Urine Ketones NEG (NEG) Urine Occult Blood 3+ (NEG) Urine Nitrite NEG (NEG) Urine Bilirubin NEG (NEG) Urine Urobilinogen NEG (NEG) Urine Leukocyte Esterase TRACE (NEG) Urine WBC (Auto) 1-5 /hpf (0-5) Urine RBC (Auto) 5-10 /hpf (0-4) Urine Hyaline Casts (Auto) 1-5 /lpf (0-5) Urine Epithelial Cells (Auto) 20-30 /lpf (0-5) Urine Bacteria (Auto) NEG (NEG) Urine Opiates Screen NEG (NEG) Urine Methadone, Qualitative NEG (NEG) Urine Barbiturates NEG (NEG) Urine Phencyclidine (PCP) Level NEG (NEG) Ur Amphetamine/Methamphetamine NEG (NEG) MDMA (Ecstasy) Screen NEG (NEG) Urine Benzodiazepines Screen NEG (NEG) Urine Cocaine Metabolite NEG (NEG) Urine Marijuana (THC) NEG (NEG) Ethyl Alcohol mg/dL 51.6 mg/dl (0-3) Departure Information Impression Primary Impression: Depression Additional Impressions: Alcohol intoxication Alcohol abuse Suicidal ideation Dispostion Still a Patient Referrals No Doctor, Assigned (PCP) Patient Instructions My [facility] Problem Qualifiers
[2017-10-08 14:40] VITALS: BP 122/68; PULSE 78; TEMP 36.9; O2SAT 98
== END 2017-10-08 14:37 ==
LOC: C.EDB 22:23 → C.EDA 10-08 14:37
DX: F32.9 Major depressive disorder, single episode, unspecified (principal); F10.920 Alcohol use, unspecified with intoxication, uncomplicated; F10.10 Alcohol abuse, uncomplicated; R45.851 Suicidal ideations; I10 Essential (primary) hypertension; Z83.3 Family history of diabetes mellitus; Z82.49 Family history of ischemic heart disease and other diseases of the circulatory system; F17.200 Nicotine dependence, unspecified, uncomplicated